=== PATIENT | female | born 1955 | race Caucasian/White ===

== ENCOUNTER 2018-12-06 15:05 | Emergency (ER) | payer BC ==
--- NOTE | 2018-12-06 15:25 | UC ---
Skin Complaint HPI - HPI Summary HPI Summary: tick bite: went on a hike and when she returned she noticed a tick on her back. she removed herself. she states it was likely a deer tick, not engorged and attached less than 24hrs. blood pressure: per pt she has had elevated bp for many years and was dx'd. was told to start meds but she has had anxiety for yrs. and never went to pcp. she has no primary care and would like to start tx. denies cp, wade, or change in balance. she was unable to get dental procedures her bp was so high. she would like to start meds. she does not know if she wants to start them here or w/ outpt. she's never been tested for thyroid issues. - History of Current Complaint Chief Complaint: UCGeneralIllness Time Seen by Provider: 12/06/18 15:19 Stated Complaint: TICK BITE Hx Obtained From: Patient Aggravating Factor(s): Nothing Alleviating Factor(s): Nothing - Allergy/Home Medications Allergies/Adverse Reactions: Allergies Allergy/AdvReac Type Severity Reaction Status Date / Time Sulfa (Sulfonamide Allergy Tachycardia Verified 12/06/18 15:33 Antibiotics) PMH/Surg Hx/FS Hx/Imm Hx - Additional Past Medical History Additional PMH: no other chronic conditions. Previously Healthy: Yes - Surgical History Surgical History: None - Family History Known Family History: Positive: Unknown Family History: PT ADOPTED - FAMILY HX UNKNOWN - Social History Alcohol Use: Weekly Substance Use Type: None Smoking Status (MU): Never Smoked Tobacco Type: Cigarettes Have You Smoked in the Last Year: No Review of Systems All Other Systems Reviewed And Are Negative: Yes Constitutional: Negative: Fever Skin: Negative: Rash Eyes: Negative: Blurred Vision Respiratory: Negative: Shortness Of Breath Cardiovascular: Negative: Palpitations, Chest Pain Gastrointestinal: Positive: Abdominal Pain. Negative: Nausea Musculoskeletal: Negative: Arthralgia Neurological: Negative: Headache Physical Exam Triage Information Reviewed: Yes Appearance: Well-Appearing Vital Signs Reviewed: Yes Respiratory Exam: Normal Cardiovascular Exam: Normal Musculoskeletal: Positive: No Edema Skin: Positive: Other - upper back had small site where it appears tick was.. Negative: Rashes Course/Dx - Course Course Of Treatment: TICK BITE:at upper back and removed herself. not engorged and attached less than 36hrs but pt wanted prophylaxis. will oblige and we discussed risk of antibx. HTN: dx'd a long time ago but she has chosen not to take tx and we discussed risk of untreated htn. she has decided to find a outpt. pcp and start w/u including thyroid disease and initial tx of anti hypertensive. no cardiac symptoms today. exam unremarkable for this and although elevated bp her other vitals are WNL. - Differential Diagnoses - Skin Complaint Differential Diagnoses: Tick Born Illness, Other - blood pressure - Diagnoses Provider Diagnosis: Hypertension, Tick bite Discharge - Sign-Out/Discharge Documenting (check all that apply): Patient Departure All imaging exams completed and their final reports reviewed: No Studies - Discharge Plan Condition: Good Disposition: HOME Prescriptions: DOXYcycline CAP(*) [DOXYcycline 100MG CAP(*)] 100 mg PO DAILY 1 Days #2 cap Patient Education Materials: Hypertension (ED) Referrals: [facility] [Outside] Additional Instructions: You can either go to [facility] as an overbook tomorrow (you must call ) and let them know [facility] ok'd an overbook. OR you may contact the primary care office in your paperwork. - Billing Disposition and Condition Condition: GOOD Disposition: Home - Attestation Statements Provider Attestation: Per institutional requirements, I have reviewed the chart, however, I was not consulted specifically or made aware of this patient by the midlevel provider. I did not personally evaluate, interact with , or disposition this patient.
[2018-12-06 16:29] VITALS: BP 180/106
== END 2018-12-06 16:27 | disposition home or self-care (01) ==
LOC: UCEAST 15:05
DX: T63.481A Toxic effect of venom of other arthropod, accidental (unintentional), initial encounter (principal); Y92.9 Unspecified place or not applicable; I10 Essential (primary) hypertension; Z88.2 Allergy status to sulfonamides
CPT/HCPCS: 99211; G0463